=== PATIENT | female | born 1950 | race Caucasian/White ===

== ENCOUNTER → 2018-08-27 | Outpatient (CLI) | payer MEDICARE ==
[~2018-08-27] MED LIST: ESTMED1.5T PO; MECL25 PO
== END | disposition home or self-care (01) ==
LOC: LAB SHORT 14:21 → LAB 14:21
DX: N95.0 Postmenopausal bleeding (principal)
CPT/HCPCS: 88305

== ENCOUNTER 2023-03-03 08:43 | Day surgery (SDC) | payer MEDICARE ==
[~2023-03-03] VITALS: Ht 167.6 cm; Wt 83.7 kg
[2023-03-03] VITALS (14 sets, daily range): BP systolic 90–119; BP diastolic 53–74
[~2023-03-03 08:43] MED LIST changes: +ASPI81CH PO; +CARBLEV25 PO; +CELEXA40 M1 PO; +FLUT.05NI; +FURO40 PO; +GABA400 PO; +MELO7.5 PO; +MONT10T PO; +Methocarbamol750 MG PO; +PREDNISOLONE ACE5 ML BOTHEYES; +PRIM250 PO; +RABEPRAZOLE SOD20 MG PO; +TRAM50 PO; +TRELEGY ELLIPT1 EAC1 IH
--- NOTE | 2023-03-03 09:25 | NUR ---
PT TO DAY SURGERY FOR RIGHT TOTAL KNEE ARTHROPLASTY. PLAN OF CARE DISCUSSED WITH PT AND HER WHO IS AT HER SIDE. QUESTIONS ANSWERED. VSS.
[2023-03-03] MEDS ORDERED: ASPI81CH PO (09:50)
--- NOTE | 2023-03-03 13:43 | NUR ---
ARRIVAL TO UNIT PT ARRIVED TO UNIT FROM PACU DENIES PAIN IN SURGICAL LEG BUT REPORTS CHRONIC NECK PAIN, K PAD PROVIDED. PT [id number]. DENIES SOB. REPORTS 3L NASAL CANULA WHILE ASLEEP AT BASELINE. CONT BIOX PLACED. POLAR DEEPALI AND AUBREY HOSE ON. NUMBNESS FROM THIGH DOWN R/T SPINAL. PT TOLERATING WATER AND JELLO WELL. NO NAUSEA.
--- NOTE | 2023-03-03 15:26 | NUR ---
PT C/O HEAVY, CRUSHING CP. WITH INCREASED SOB AND DIFFICULTY BREATHING. SPOKE WITH VIOLIN TEACHER. SATS REMAINED AT 97% OR HIGHER PLACED ON 2L NASAL CANULA FOR COMFORT. MEDICATED FOR PAIN. PT REPORTED PAIN IMPROVED BUT HEAVINESS AND DIFFICULTY BREATHING REMAINED. HOSPITALIST CONSULT PLACED TO DR. WALTER AND SHE WAS NOTIFIED. EKG DONE. SPOUSE AT BEDSIDE. LUNGS SOUNDED CLEAR T/O. PULSE WAS VISIBLE IN R SIDE NECK DURING EVEN. MD AWARE.
[2023-03-03 15:31] LABS: BASOPHILS ABSOLUTE AUTO 0.04 K/mm3 (0.00-0.23); BASOPHILS PERCENT AUTO 0 % (0-2); EOSINOPHILS ABSOLUTE AUTO 0.03 K/mm3 (0.00-0.68); EOSINOPHILS PERCENT AUTO 0 % (0-6); Hematocrit 36.5 % (33.0-51.0); Hemoglobin 11.9 g/dL (11.5-16.0); IMMATURE GRAN ABSOLUTE AUTO 0.06 K/mm3 (0.00-0.10); IMMATURE GRAN PERCENT AUTO 1 % (0-1); LYMPHOCYTES ABSOLUTE AUTO 0.96 K/mm3 (0.84-5.20); LYMPHOCYTES PERCENT AUTO 10 % (21-46); MONOCYTES ABSOLUTE AUTO 0.24 K/mm3 (0.16-1.47); MONOCYTES PERCENT AUTO 3 % (4-13); Mean Corpuscular HGB 31.7 pg (26.0-34.0); Mean Corpuscular HGB Conc 32.6 g/dL (31.5-36.5); Mean Corpuscular Volume 97 fL (80-100); Mean Platelet Volume 11.6 fL (9.1-12.4); NEUTROPHILS ABSOLUTE AUTO 8.11 K/mm3 (1.96-9.15); NEUTROPHILS PERCENT AUTO 86 % (41-73); Platelet Count 155 K/mm3 (150-400); RDW Standard Deviation 50.1 fL (35.1-46.3); Red Blood Cell Count 3.75 M/mm3 (3.80-5.20); White Blood Cell Count 9.44 K/mm3 (4.00-11.30)
[2023-03-03 16:08] LABS: Albumin, Blood 2.8 g/dL (3.4-5.0); Albumin/Globulin Ratio 0.8 (0.8-1.8); Bilirubin, Total 0.3 mg/dL (0.1-1.0); Bun/Creatinine Ratio 21.6 (12.0-20.0); Calcium, Blood 8.4 mg/dL (8.5-10.1); Creatinine, Blood 0.6 mg/dL (0.40-1.00); Globulin, Blood 3.7 g/dL (2.2-4.0); Potassium, Blood 3.4 mmol/L (3.5-5.5); Total Protein, Blood 6.5 g/dL (6.4-8.2)
--- NOTE | 2023-03-03 17:24 | NUR ---
SHIFT SUMMARY S/P R TKA SINCE PREVIOUS NOTE PT REPORTS FEELING MUCH BETTER. ALMOST HAS FULL SENSATION IN LEGS. ABLE TO WIGGLE TOES AND LIFT SLIGHTLY. VOIDING ON HER OWN. PAIN CONTROLLED. DENIES FURTHER CHEST PAIN OR SHORTNESS OF BREATH. PAIN IN KNEE CONTROLLED PER EMAR. HAS NOT WORKED WITH THERAPY YET.
[2023-03-04 00:02] VITALS: BP 89/63
[2023-03-04 03:13] VITALS: BP 92/62
[2023-03-04 04:15] LABS: BASOPHILS ABSOLUTE AUTO 0.05 K/mm3 (0.00-0.23); BASOPHILS PERCENT AUTO 0 % (0-2); EOSINOPHILS ABSOLUTE AUTO 0.01 K/mm3 (0.00-0.68); EOSINOPHILS PERCENT AUTO 0 % (0-6); Hematocrit 32.9 % (33.0-51.0); Hemoglobin 10.8 g/dL (11.5-16.0); IMMATURE GRAN ABSOLUTE AUTO 0.05 K/mm3 (0.00-0.10); IMMATURE GRAN PERCENT AUTO 0 % (0-1); LYMPHOCYTES ABSOLUTE AUTO 2.27 K/mm3 (0.84-5.20); LYMPHOCYTES PERCENT AUTO 17 % (21-46); MONOCYTES ABSOLUTE AUTO 0.88 K/mm3 (0.16-1.47); MONOCYTES PERCENT AUTO 7 % (4-13); Mean Corpuscular HGB Conc 32.8 g/dL (31.5-36.5); Mean Corpuscular Volume 97 fL (80-100); Mean Platelet Volume 12.3 fL (9.1-12.4); NEUTROPHILS ABSOLUTE AUTO 9.88 K/mm3 (1.96-9.15); NEUTROPHILS PERCENT AUTO 75 % (41-73); Platelet Count 164 K/mm3 (150-400); RDW Coefficient Variation 14.2 % (11.7-14.2); RDW Standard Deviation 50.6 fL (35.1-46.3); Red Blood Cell Count 3.38 M/mm3 (3.80-5.20); White Blood Cell Count 13.14 K/mm3 (4.00-11.30)
--- NOTE | 2023-03-04 04:19 | NUR ---
SHIFT SUMMARY POD1 R TKA. SENSATION AND CIRCULATION REMAINS C/D/I. AQUACEL IS C/D/I. VSS, SOME HYPOTENTION NOTED. PT REMAINS ASYMPTOMATIC. IV FLUIDS INFUSING. PT MEDICATED FOR PAIN WITH SCHEDULED AND PRN'S. LOW URINE OUTPUT NOTED, 200 MLS. ENCOURAGED TO INCREASE PO INTAKE. NO N/V NOTED. PT STRUGGLING TO BEAR FULL WEIGHT ON RLE WHEN AMBULATING. PLAN FOR PT TO HAVE PHYSICAL THERAPY TODAY.
[2023-03-04 05:05] LABS: Calcium, Blood 8.5 mg/dL (8.5-10.1); Creatinine, Blood 0.64 mg/dL (0.40-1.00); Potassium, Blood 3.6 mmol/L (3.5-5.5)
[2023-03-04 07:03] VITALS: BP 99/65
[2023-03-04] MEDS ORDERED: ASPI81CH PO (07:27)
[2023-03-04] MEDS ORDERED: Percocet 5-3251 EACH PO (07:31)
--- NOTE | 2023-03-04 10:16 | NUR ---
DISCHARGE NOTE: PATIENT WAS EDUCATED ON DISCHARGE INSTRUCTIONS. SHE VERBALIZED UNDERSTANDING OF INSTRUCTIONS AND HAD NO FURTHER QUESTIONS AT THIS TIME. PAIN IS MANAGED WITH PO PAIN MEDS. HER HAS THE PAIN PERSCRIPTION ALREADY. IV WAS TAKEN OUT AND WNL. HER RIGHT KNEE HAS AN AQUACEL AND MONSERRAT WRAP THAT IS C/D/I. DENIES NUMBNESS OR TINGLING IN ALL EXTREMITIES. SHE IS A SBA WITH FWW AND GAIT BELT. PATIENT IS DRESSED AND HAS PERSONAL ITEMS IN THE ROOM GATHERED. SHE IS VOIDING AND TOLERATING PO INTAKE. PATIENT IS IN HER RECLINER CHAIR WITH CALL LIGHT IN REACH. SHE IS WAITING FOR HER TO COME PICK HER UP TO TAKE HER HOME.
--- NOTE | 2023-03-04 11:05 | NUR ---
PATIENT WAS WHEELCHAIRED DOWN TO HER HUSBANDS CAR WITH ALL OF HER PERSONAL BELONGINGS.
== END 2023-03-04 11:05 | disposition home or self-care (01) ==
LOC: SURS 08:43 → ORSCMMR 08:43 → ORD 10:00 → ORSCMMR 10:00 → ORD 11:00 → SURS 13:14 → ORSCMMR 03-04 11:05
PROVIDERS: Internal Medicine; Orthopaedic Surgery
PROC: 0SRC0JA Replacement of Right Knee Joint with Synthetic Substitute, Uncemented, Open Approach (ICD-10-PCS; principal; 2023-03-03 10:00)
DX: M17.11 Unilateral primary osteoarthritis, right knee (principal); G20.C Parkinsonism, unspecified; J45.909 Unspecified asthma, uncomplicated; Z99.81 Dependence on supplemental oxygen; F41.9 Anxiety disorder, unspecified; K21.9 Gastro-esophageal reflux disease without esophagitis; Z79.899 Other long term (current) drug therapy
CPT/HCPCS: 36415; 71046; 73560-RT; 80048; 80053; 83690; 84484; 85025; 94640; 94664; 94762; 97110; 97116; 97162; 97530; A9270; C1776; J0171; J0690; J0735; J1100; J1170; J1885; J2250; J2405; J2704; J2795; J3010; J7120

== ENCOUNTER → 2024-02-22 | Outpatient (CLI) | payer MEDICARE ==
[~2024-02-22] MED LIST changes: +ALPR.5 PO; +EUTHYROX125 MCG PO; +Percocet 5-3251 EACH PO; +XARELTO15 MG PO
[2024-02-22 16:58] LABS: Source, Urine Clean Catch
[2024-02-22 18:44] LABS: Appearance, Urine Cloudy (Clear); Bilirubin, Urine Neg (Neg); Blood, Urine 4+ (Neg); Color, Urine Yellow (P-Yellow); Glucose Qualitative, Urine Neg (Neg); Ketones, Urine Neg (Neg); Leukocyte Esterase, Urine 3+ (Neg); Nitrite, Urine Neg (Neg); Protein, Urine 4+ (Neg); Specific Gravity, Urine 1.015 (1.003-1.022); Urobilinogen, Urine NORM (Normal)
[2024-02-22 19:02] LABS: White Blood Cells, Urine TNTC /hpf (0-5)
[2024-02-22 19:03] LABS: Bacteria Many /hpf; Squamous Epithelial Cells Rare /hpf (Few); Transitional Epithelial Cells Few /hpf (0-Rare)
== END ==
LOC: LAB 16:56 → LAB SHORT 16:56
PROVIDERS: Obstetrics & Gynecology
DX: R30.0 Dysuria (principal)
CPT/HCPCS: 81001; 87077; 87086; 87186

== ENCOUNTER → 2024-03-01 | Outpatient (CLI) | payer MEDICARE ==
[2024-03-01 12:09] LABS: Source, Urine Clean Catch
[2024-03-01 19:04] LABS: Appearance, Urine Cloudy (Clear); Bilirubin, Urine Neg (Neg); Blood, Urine 3+ (Neg); Glucose Qualitative, Urine Neg (Neg); Ketones, Urine Neg (Neg); Leukocyte Esterase, Urine 3+ (Neg); Nitrite, Urine Pos (Neg); Protein, Urine 2+ (Neg); Specific Gravity, Urine 1.005 (1.003-1.022); Urobilinogen, Urine NORM (Normal)
[2024-03-01 19:35] LABS: Color, Urine Pale Yellow (P-Yellow)
[2024-03-01 19:39] LABS: Bacteria Many /hpf; Squamous Epithelial Cells Few /hpf (Few); Transitional Epithelial Cells Rare /hpf (0-Rare); White Blood Cells, Urine 25-50 /hpf (0-5)
== END ==
LOC: LAB SHORT 11:44 → LAB 11:44
PROVIDERS: Obstetrics & Gynecology
DX: R39.15 Urgency of urination (principal)
CPT/HCPCS: 81001; 87077; 87086; 87186

== ENCOUNTER → 2024-03-10 | Outpatient (CLI) | payer MEDICARE ==
[2024-03-10 13:06] LABS: Source, Urine Clean Catch
[2024-03-10 18:42] LABS: Appearance, Urine Hazy (Clear); Bilirubin, Urine Neg (Neg); Blood, Urine 2+ (Neg); Color, Urine Yellow (P-Yellow); Glucose Qualitative, Urine Neg (Neg); Ketones, Urine Neg (Neg); Leukocyte Esterase, Urine 3+ (Neg); Nitrite, Urine Neg (Neg); Protein, Urine 3+ (Neg); Urobilinogen, Urine NORM (Normal); pH, Urine 6.5 (5.0-8.0)
[2024-03-10 19:04] LABS: Bacteria Few /hpf; Squamous Epithelial Cells Few /hpf (Few)
== END | disposition home or self-care (01) ==
LOC: LAB 12:59 → LAB SHORT 12:59
PROVIDERS: Obstetrics & Gynecology
DX: R39.9 Unspecified symptoms and signs involving the genitourinary system (principal); R30.0 Dysuria
CPT/HCPCS: 81001; 87086

== ENCOUNTER → 2024-03-21 | Outpatient (CLI) | payer MEDICARE ==
[2024-03-21 16:28] LABS: Bacterial Vaginosis PCR Negative (NEGATIVE); Candida Group, PCR NOT DETECTED (NOT DETECT); Candida glabrata-krusei, PCR NOT DETECTED (NOT DETECT)
== END ==
LOC: LAB SHORT 13:41 → LAB 13:41
PROVIDERS: Family Medicine
DX: Z46.89 Encounter for fitting and adjustment of other specified devices (principal)
CPT/HCPCS: 81515

== ENCOUNTER → 2024-05-04 | Outpatient (CLI) | payer MEDICARE | END | disposition home or self-care (01) | LOC: LAB SHORT 19:14 → LAB 19:14 | DX: M54.9 Dorsalgia, unspecified (principal) | CPT/HCPCS: 87077; 87086; 87186 ==

== ENCOUNTER → 2024-05-23 | Outpatient (CLI) | payer MEDICARE ==
[2024-05-23 13:05] LABS: Source, Urine Clean Catch
[2024-05-23 18:56] LABS: Appearance, Urine Clear (Clear); Bilirubin, Urine Neg (Neg); Blood, Urine Neg (Neg); Glucose Qualitative, Urine Neg (Neg); Ketones, Urine Neg (Neg); Leukocyte Esterase, Urine 1+ (Neg); Nitrite, Urine Neg (Neg); Protein, Urine Neg (Neg); Specific Gravity, Urine 1.005 (1.003-1.022); Urobilinogen, Urine NORM (Normal)
[2024-05-23 20:00] LABS: Color, Urine Pale Yellow (P-Yellow)
[2024-05-23 20:01] LABS: Bacteria Mod /hpf; Red Blood Cells, Urine 0-2 /hpf (0-2); Squamous Epithelial Cells Few /hpf (Few)
== END ==
LOC: LAB SHORT 10:59 → LAB 10:59
PROVIDERS: Obstetrics & Gynecology
DX: N39.0 Urinary tract infection, site not specified (principal)
CPT/HCPCS: 81001; 87077; 87086; 87186